=== PATIENT | female | born 1955 | race Caucasian/White ===

== ENCOUNTER 2018-08-16 17:02 | Emergency (ER) | payer OTHER ==
[2018-08-16 17:40] VITALS: BP 144/78; PULSE 76; O2SAT 100
--- NOTE | 2018-08-16 17:54 | ERPHSYRPT ---
- History of Present Illness Time Seen by Provider: 08/16/18 17:47 Source: patient, family Exam Limitations: no limitations Patient Subjective Stated Complaint: pt reports she fell at her doctors office today and landed on her buttocks. reports an office staff member checked her BP there and the reading was 86/48. states her doctor advised her to come get her blood pressure checked as well as her potassium. pt is undergoing chemotherapy once every 3 weeks for uterine cancer. pt reports her last treatment was 2 weeks ago. pt reports recent port placement to the left chest. Triage Nursing Assessment: pt is aox3, pupils perrl, resps easy and non labored , pt afebrile, radial pulses are strong and equal. no edema noted. red scaly rash noted to the extremities as well as the face. port in place to the left chest. Physician History: The patient is a 62-year-old female with her complaining that she became lightheaded while she was closing the door to the bathroom at the doctor' s office this afternoon, causing her to fall on her buttocks on the floor. She was able to hold onto the door handle and lower herself gently to the floor. The doctor took her blood pressure at the time and found the systolic to be in the 80s. He advised her to come to the ER and the given fluids and checked out. She denies chest pain or shortness of breath. She feels much better now and is not lightheaded. She is currently on chemotherapy for uterine cancer. She is scheduled for surgery after more chemotherapy. She normally takes medicine for high blood pressure but has not done so for the past for 5 days because her blood pressure has been low in the morning. Her past medical history significant for tubal ligation and knee surgeries. Occurred: this afternoon Reason for Fall: lightheaded, fell from standing pos Injuries/Pain Location: no injury Loss of Consciousness: no loss of consciousness Severity of Pain-Max: none Severity of Pain-Current: none Modifying Factors: Improves With: nothing Associated Symptoms (Fall): lightheadedness Allergies/Adverse Reactions: sulfamethoxazole [From Bactrim] Allergy (Verified 08/16/18 17:40) trimethoprim [From Bactrim] Allergy (Verified 08/16/18 17:40) Hx Tetanus, Diphtheria Vaccination/Date Given: No Hx Influenza Vaccination/Date Given: No Hx Pneumococcal Vaccination/Date Given: No Immunizations Up to Date: Yes - Review of Systems Constitutional: No Fever, No Chills Eyes: No Symptoms Ears, Nose, & Throat: No Symptoms Respiratory: No Cough, No Dyspnea Cardiac: No Chest Pain, No Edema, No Syncope Abdominal/Gastrointestinal: No Abdominal Pain, No Nausea, No Vomiting, No Diarrhea Genitourinary Symptoms: No Dysuria Musculoskeletal: No Back Pain, No Neck Pain Skin: No Rash Neurological: No Dizziness, No Focal Weakness, No Sensory Changes Psychological: No Symptoms Endocrine: No Symptoms Hematologic/Lymphatic: No Symptoms Immunological/Allergic: No Symptoms All Other Systems: Reviewed and Negative - Past Medical History Pertinent Past Medical History: Yes Cardiac History: Hypertension Musculoskeletal History: Arthritis History: Renal Disease Female Reproductive Disorders: Uterine Cancer - Past Surgical History Past Surgical History: Yes Other Surgical History: 1979 - tubal, cyst removed from [place]. 1982 - knee surgery. port placement 2017 - Social History Smoking Status: Never smoker Drug Use: none Patient Lives Alone: No - Female History Hx Now: No - Nursing Vital Signs Nursing Vital Signs: Initial Vital Signs Temperature 98.6 F 08/16/18 17:26 Pulse Rate 76 08/16/18 17:26 Respiratory Rate 20 08/16/18 17:26 Blood Pressure 144/78 08/16/18 17:26 O2 Sat by Pulse Oximetry 100 08/16/18 17:26 Pain Scale Pain Intensity 3 - Noah Coma Score Best Eye Response ([place]): (4) open spontaneously Best Verbal Response ([place]): (5) oriented Best Motor Response ([place]): (6) obeys commands [place] Total: 15 - Physical Exam General Appearance: no apparent distress, alert Head Injury: no evidence of injury Eye Exam: PERRL/EOMI ENT Exam: airway nml Neck Exam: normal inspection, No tenderness Respiratory/Chest Exam: normal breath sounds, No chest tenderness, No respiratory distress Cardiovascular Exam: normal heart sounds, regular rate/rhythm Gastrointestinal Exam: soft, No tenderness, No distention, No guarding, No ecchymosis Rectal Exam: not done Back Exam: normal inspection, No vertebral tenderness Extremity Exam: normal inspection Neurologic Exam: alert, oriented x 3, cooperative, sensation nml, No motor deficits Skin Exam: normal color, warm, dry SpO2 Interpretation: normal SpO2: 100 Oxygen Delivery: Room Air Ordered Tests: Active Orders 24 hr Category Date Time Status Clean Catch Urine Specimen STAT Care 08/16/18 17:58 Active EKG-ER Only STAT Care 08/16/18 18:00 Active IV Insertion STAT Care 08/16/18 17:58 Active Medication Summary Discontinued Medications Generic Name Dose Route Start Last Admin Trade Name Freq PRN Reason Stop Dose Admin Sodium Chloride 1,000 mls @ 999 mls/hr 08/16/18 17:58 Sodium Chloride 0.9% 1000 Ml IV 08/16/18 18:58 .Q1H1M STA - Departure Time of Disposition: 19:18 Departure Disposition: AMA Clinical Impression: Dehydration Condition: Stable Critical Care Time: No Referrals: ANKUR CARRILLO [Primary Care Provider] -
[2018-08-16] MEDS ORDERED: Sodium Chloride 0.9% 1000 ML 1,000 ML IV STA (17:58)
== END 2018-08-16 18:24 | disposition left against medical advice (07) ==
LOC: ED 17:02
DX: E86.0 Dehydration (principal); R42 Dizziness and giddiness; C55 Malignant neoplasm of uterus, part unspecified; W18.30XA Fall on same level, unspecified, initial encounter; Y92.531 Health care provider office as the place of occurrence of the external cause
CPT/HCPCS: 99283